=== PATIENT | male | born 1970 | race African-American/Black ===

== ENCOUNTER 2020-08-04 15:35 | Inpatient (IN) | payer MEDICARE, MEDICAID ==
[~2020-08-04] VITALS: Ht 190.5 cm; Wt 84.8 kg
[2020-08-04] MEDS ORDERED: ONDANSETRON HCL 4MG/2ML INJ IV STA (15:52)
[2020-08-04] MEDS ORDERED: VANCOMYCIN 1 G PREMIX 200 ML IV NR (16:00)
[2020-08-04] MEDS ORDERED: SODIUM CHLORIDE 0.9% 1,000 ML IV ONE (16:00)
[2020-08-04] MEDS ORDERED: PIPERACILLIN/TAZ 3.375G PREMIX 50 ML IV NR (16:00)
[2020-08-04 16:35] LABS: HEMATOCRIT. 30.2 % (42.0-52.0); HEMOGLOBIN. 9.9 g/dL (14.0-18.0); MEAN CORPUSCULAR HEMOGLOBIN 24.9 pg (28.0-32.0); MEAN PLATELET VOLUME 7.4 fl (7.4-10.4); PLATELET 517 x1000/uL (130-400); RED BLOOD CELL COUNT 3.98 mill/uL (4.7-6.1); RED CELL DISTRIBUTION WIDTH 17.6 % (11.6-14.6)
[2020-08-04 16:43] LABS: INR 1.4; PARTIAL THROMBOPLASTIN TIME 36.5 sec (23.4-31.0); PROTHROMBIN TIME 14.1 sec (9.6-11.0)
[2020-08-04 17:21] LABS: PLATELET ESTIMATE INCREASED
[2020-08-04 17:29] LABS: CHLORIDE 106 mEq/L (98-107)
[2020-08-04] MEDS ORDERED: KETOROLAC 30MG/ML VIAL IV ONE (17:45)
[2020-08-04] MEDS ORDERED: ACETAMINOPHEN 325MG TABLET PO PRN ×2 (19:30)
[2020-08-04 20:00] VITALS: BP 151/80
[2020-08-04] MEDS ORDERED: MAGNESIUM HYDROXIDE 400MG/5ML 30ML UDC PO PRN (21:30)
[2020-08-04] MEDS: ENOXAPARIN 40MG/0.4ML SYR SUBCUT SCH (21:36)
[2020-08-04 21:45] VITALS: BP 151/80
[2020-08-04] MEDS ORDERED: PIPERACILLIN/TAZ 3.375G PREMIX 50 ML IV SCH (22:00)
[2020-08-04] MEDS: SODIUM CHLORIDE 0.9% INJ 3ML FLUSH IVF SCH (22:44)
[2020-08-04] MEDS: KETOROLAC 30MG/ML VIAL IV PRN (22:45)
[2020-08-04] MEDS: GABAPENTIN 300MG CAPSULE PO SCH (22:52)
[2020-08-05] VITALS: BP 156/88
[2020-08-05] MEDS: PIPERACILLIN/TAZOBACTAM 3.375 G in DEXT 5% WATER 100 ML IV SCH ×4 (01:53→18:28)
[2020-08-05] MEDS ORDERED: HYDR-4009 MT (03:42)
[2020-08-05] MEDS ORDERED: ONDA4TAB50 PO (03:43)
[2020-08-05] MEDS ORDERED: BENA40TA9 MT (03:44)
[2020-08-05] MEDS ORDERED: NITR-87 PO (03:45)
[2020-08-05] MEDS ORDERED: TIZA4TAB5 MT (03:46)
[2020-08-05] MEDS ORDERED: NAPR-1164 MT (03:47)
[2020-08-05] MEDS ORDERED: GABA-531 MT (03:50)
[2020-08-05] MEDS ORDERED: LIDO30CR TP (03:51)
[2020-08-05 04:00] VITALS: BP 160/82
[2020-08-05] MEDS: GABAPENTIN 300MG CAPSULE PO SCH ×3 (05:10→22:00)
[2020-08-05] MEDS: SODIUM CHLORIDE 0.9% INJ 3ML FLUSH IVF SCH ×3 (05:11→22:00)
[2020-08-05 06:35] LABS: BASOPHILS % 0.3 % (0.0-2.0); EOSINOPHILS % 0.3 % (0.0-5.0); HEMATOCRIT. 29.5 % (42.0-52.0); HEMOGLOBIN. 9.6 g/dL (14.0-18.0); LYMPHOCYTES % 11.3 % (20.0-50.0); MEAN CORPUSCULAR HEMOGLOBIN 24.7 pg (28.0-32.0); MEAN CORPUSCULAR VOLUME 75.9 fL (80.0-94.0); MEAN PLATELET VOLUME 6.7 fl (7.4-10.4); NEUTROPHILS % 82.1 % (40.0-76.0); PLATELET 494 x1000/uL (130-400); RED BLOOD CELL COUNT 3.89 mill/uL (4.7-6.1); RED CELL DISTRIBUTION WIDTH 17.8 % (11.6-14.6)
[2020-08-05] MEDS: CLONIDINE 0.1MG TABLET PO PRN (06:41)
[2020-08-05 07:02] LABS: CHLORIDE 103 mEq/L (98-107)
[2020-08-05 08:00] VITALS: BP 117/75
[2020-08-05] MEDS ORDERED: VANCOMYCIN 1 G PREMIX 200 ML IV SCH ×3 (08:00→22:00)
[2020-08-05] MEDS: FAMOTIDINE 20MG TABLET PO SCH ×2 (09:22→21:50)
[2020-08-05] MEDS: POLYETHYLENE GLYCOL 3350 (17GM) 1 DOSE PACK PO SCH (09:22)
[2020-08-05] MEDS: KETOROLAC 30MG/ML VIAL IV PRN ×2 (09:24→18:44)
[2020-08-05] MEDS ORDERED: INFLUENZA VACCINE 05/PF 0.5 ML VIAL IM ONE (10:00)
[2020-08-05 11:53] VITALS: BP 108/67
[2020-08-05 16:00] VITALS: BP 134/88
[2020-08-05] MEDS: ENOXAPARIN 40MG/0.4ML SYR SUBCUT SCH (21:50)
[2020-08-05 21:58] VITALS: BP 128/84
[2020-08-06 00:40] VITALS: BP 138/86
[2020-08-06] MEDS: PIPERACILLIN/TAZOBACTAM 3.375 G in DEXT 5% WATER 100 ML IV SCH ×4 (01:03→18:26)
[2020-08-06] MEDS: KETOROLAC 30MG/ML VIAL IV PRN ×2 (01:04→16:20)
[2020-08-06 04:00] VITALS: BP 100/66
[2020-08-06 06:10] LABS: CHLORIDE 101 mEq/L (98-107)
[2020-08-06] MEDS: GABAPENTIN 300MG CAPSULE PO SCH ×3 (06:16→21:25)
[2020-08-06] MEDS: SODIUM CHLORIDE 0.9% INJ 3ML FLUSH IVF SCH ×2 (06:18→21:25)
[2020-08-06 08:00] VITALS: BP 98/59
[2020-08-06] MEDS: FAMOTIDINE 20MG TABLET PO SCH ×2 (08:46→21:25)
[2020-08-06] MEDS: POLYETHYLENE GLYCOL 3350 (17GM) 1 DOSE PACK PO SCH (08:46)
[2020-08-06] MEDS: HYDROCODONE/APAP 7.5/325MG 1 TAB TABLET PO PRN (09:20)
[2020-08-06 12:13] VITALS: BP 113/80
[2020-08-06 15:55] VITALS: BP 104/65
[2020-08-06 20:00] VITALS: BP 137/81
[2020-08-06] MEDS: ENOXAPARIN 40MG/0.4ML SYR SUBCUT SCH (21:24)
[2020-08-07] VITALS: BP 110/68
[2020-08-07] MEDS: PIPERACILLIN/TAZOBACTAM 3.375 G in DEXT 5% WATER 100 ML IV SCH ×4 (00:06→17:45)
[2020-08-07] MEDS: KETOROLAC 30MG/ML VIAL IV PRN ×2 (00:13→12:38)
[2020-08-07 04:00] VITALS: BP 113/69
[2020-08-07] MEDS: GABAPENTIN 300MG CAPSULE PO SCH ×3 (05:33→22:17)
[2020-08-07] MEDS: SODIUM CHLORIDE 0.9% INJ 3ML FLUSH IVF SCH ×3 (05:34→22:17)
[2020-08-07 06:23] LABS: BASOPHILS % 0.3 % (0.0-2.0); EOSINOPHILS % 1.1 % (0.0-5.0); HEMATOCRIT. 25.3 % (42.0-52.0); HEMOGLOBIN. 8.4 g/dL (14.0-18.0); LYMPHOCYTES % 13.8 % (20.0-50.0); MEAN CORPUSCULAR HEMOGLOBIN 24.6 pg (28.0-32.0); MEAN CORPUSCULAR VOLUME 74.4 fL (80.0-94.0); MEAN PLATELET VOLUME 7.1 fl (7.4-10.4); MONOCYTES % 8.1 % (2.0-8.0); NEUTROPHILS % 76.7 % (40.0-76.0); PLATELET 386 x1000/uL (130-400); RED CELL DISTRIBUTION WIDTH 17.4 % (11.6-14.6)
[2020-08-07 06:45] LABS: CHLORIDE 104 mEq/L (98-107)
[2020-08-07 08:00] VITALS: BP 124/70
[2020-08-07] MEDS: POLYETHYLENE GLYCOL 3350 (17GM) 1 DOSE PACK PO SCH (09:00)
[2020-08-07] MEDS: FAMOTIDINE 20MG TABLET PO SCH ×2 (09:23→22:17)
[2020-08-07 12:00] VITALS: BP 130/81
[2020-08-07] MEDS: VANCOMYCIN 1 G PREMIX 200 ML IV SCH (14:33)
[2020-08-07 16:00] VITALS: BP 143/86
[2020-08-07] MEDS: MORPHINE SULFATE 4 MG/ML CPJ (NOT FOR IM USE) IV PRN (18:26)
[2020-08-07] MEDS ORDERED: MORPHINE SULFATE 4 MG/ML CPJ (NOT FOR IM USE) IV NR (18:30)
[2020-08-07 20:00] VITALS: BP 132/85
[2020-08-07] MEDS: ENOXAPARIN 40MG/0.4ML SYR SUBCUT SCH (22:17)
[2020-08-08] VITALS: BP 128/82
[2020-08-08] MEDS: PIPERACILLIN/TAZOBACTAM 3.375 G in DEXT 5% WATER 100 ML IV SCH ×4 (00:47→20:39)
[2020-08-08] MEDS: MORPHINE SULFATE 4 MG/ML CPJ (NOT FOR IM USE) IV PRN (00:47)
[2020-08-08 04:00] VITALS: BP 125/80
[2020-08-08] MEDS: KETOROLAC 30MG/ML VIAL IV PRN (05:42)
[2020-08-08] MEDS: GABAPENTIN 300MG CAPSULE PO SCH ×3 (05:43→22:28)
[2020-08-08] MEDS: SODIUM CHLORIDE 0.9% INJ 3ML FLUSH IVF SCH ×3 (05:48→22:28)
[2020-08-08 08:00] VITALS: BP 108/67
[2020-08-08] MEDS: POLYETHYLENE GLYCOL 3350 (17GM) 1 DOSE PACK PO SCH (09:00)
[2020-08-08] MEDS: FAMOTIDINE 20MG TABLET PO SCH ×2 (09:05→20:33)
[2020-08-08] MEDS ORDERED: SODIUM BICARBONATE 4% (2.4MEQ) 5ML VIAL IV ONE (12:39)
[2020-08-08] MEDS ORDERED: LIDOCAINE HCL 1% 20ML VIAL (Pyxis) INJ ONE (12:40)
[2020-08-08] MEDS: VANCOMYCIN 1 G PREMIX 200 ML IV SCH (13:55)
[2020-08-08] MEDS: HYDROCODONE/APAP 7.5/325MG 1 TAB TABLET PO PRN ×2 (15:23→22:29)
[2020-08-08 16:00] VITALS: BP 124/74
[2020-08-08 20:00] VITALS: BP 139/86
[2020-08-08] MEDS: ENOXAPARIN 40MG/0.4ML SYR SUBCUT SCH (20:33)
[2020-08-09] VITALS: BP 151/82
[2020-08-09] MEDS: PIPERACILLIN/TAZOBACTAM 3.375 G in DEXT 5% WATER 100 ML IV SCH ×4 (02:14→18:03)
[2020-08-09 04:00] VITALS: BP 140/80
[2020-08-09] MEDS: SODIUM CHLORIDE 0.9% INJ 3ML FLUSH IVF SCH ×3 (05:35→22:53)
[2020-08-09] MEDS: HYDROCODONE/APAP 7.5/325MG 1 TAB TABLET PO PRN ×2 (05:42→12:55)
[2020-08-09] MEDS: GABAPENTIN 300MG CAPSULE PO SCH ×3 (06:00→22:00)
[2020-08-09 07:02] LABS: CHLORIDE 107 mEq/L (98-107)
[2020-08-09 07:07] LABS: BASOPHILS % 0.3 % (0.0-2.0); EOSINOPHILS % 2.1 % (0.0-5.0); HEMATOCRIT. 23.2 % (42.0-52.0); HEMOGLOBIN. 7.5 g/dL (14.0-18.0); MEAN CORPUSCULAR HEMOGLOBIN 24.5 pg (28.0-32.0); MEAN CORPUSCULAR VOLUME 75.6 fL (80.0-94.0); MEAN PLATELET VOLUME 7.1 fl (7.4-10.4); MONOCYTES % 8.8 % (2.0-8.0); NEUTROPHILS % 75.8 % (40.0-76.0); PLATELET 365 x1000/uL (130-400); RED BLOOD CELL COUNT 3.06 mill/uL (4.7-6.1); RED CELL DISTRIBUTION WIDTH 17.5 % (11.6-14.6)
[2020-08-09 08:00] VITALS: BP 135/93
[2020-08-09] MEDS: POLYETHYLENE GLYCOL 3350 (17GM) 1 DOSE PACK PO SCH (09:00)
[2020-08-09] MEDS: ONDANSETRON HCL 4MG/2ML INJ IV PRN ×2 (09:46→20:35)
[2020-08-09] MEDS: FAMOTIDINE 20MG TABLET PO SCH ×2 (09:46→20:30)
[2020-08-09 12:00] VITALS: BP 121/71
[2020-08-09] MEDS: VANCOMYCIN 1 G PREMIX 200 ML IV SCH (12:47)
[2020-08-09 16:00] VITALS: BP_SYST 118; BP_SYST 119; BP_DIAS 78; BP_DIAS 82
[2020-08-09] MEDS: KETOROLAC 30MG/ML VIAL IV PRN (18:18)
[2020-08-09 20:00] VITALS: BP 117/70
[2020-08-09] MEDS: ENOXAPARIN 40MG/0.4ML SYR SUBCUT SCH (20:30)
[2020-08-10] VITALS (71 sets, daily range): BP systolic 102–146; BP diastolic 42–101
[2020-08-10] MEDS ORDERED: KETOROLAC 30MG/ML VIAL IV PRN (00:15)
[2020-08-10] MEDS: PIPERACILLIN/TAZOBACTAM 3.375 G in DEXT 5% WATER 100 ML IV SCH ×3 (00:21→15:31)
[2020-08-10] MEDS: ONDANSETRON HCL 4MG/2ML INJ IV PRN (00:21)
[2020-08-10] MEDS: VANCOMYCIN 1 G PREMIX 200 ML IV SCH (05:54)
[2020-08-10] MEDS: SODIUM CHLORIDE 0.9% INJ 3ML FLUSH IVF SCH ×3 (05:55→21:20)
[2020-08-10] MEDS: GABAPENTIN 300MG CAPSULE PO SCH ×3 (05:55→21:21)
[2020-08-10] MEDS: POLYETHYLENE GLYCOL 3350 (17GM) 1 DOSE PACK PO SCH (09:00)
[2020-08-10] MEDS: PANTOPRAZOLE SODIUM 40 MG/VIAL IV SCH (09:03)
[2020-08-10] MEDS: SODIUM CHLORIDE 0.9% 1,000 ML IV SCH ×2 (09:05→15:45)
[2020-08-10 09:59] LABS: MEAN CORPUSCULAR HEMOGLOBIN 24.5 pg (28.0-32.0); PLATELET 356 x1000/uL (130-400); RED BLOOD CELL COUNT 1.91 mill/uL (4.7-6.1); RED CELL DISTRIBUTION WIDTH 17.8 % (11.6-14.6)
[2020-08-10 10:13] LABS: HEMATOCRIT 14.5 % (42.0-52.0); HEMOGLOBIN 4.7 g/dL (14.0-18.0)
[2020-08-10] MEDS ORDERED: SODIUM CHLORIDE 0.9% 500 ML IV ONE (10:15)
[2020-08-10] MEDS: MORPHINE SULFATE 2 MG/ML CPJ (NOT FOR IM USE) IV PRN ×2 (13:38→20:03)
[2020-08-10] MEDS ORDERED: MIDAZOLAM HCL 5 MG/5 ML VIAL IV PRN (14:21)
[2020-08-10] MEDS ORDERED: MIDAZOLAM HCL 5 MG/5 ML VIAL ONE (14:21)
[2020-08-10] MEDS ORDERED: FENTANYL CITRATE/PF 50MCG/ML 2ML VIAL ONE (14:22)
[2020-08-10] MEDS ORDERED: FENTANYL CITRATE/PF 50MCG/ML 2ML VIAL IV PRN (14:22)
[2020-08-10] MEDS: SUCRALFATE 1 G/10 ML UDC PO SCH ×2 (17:39→21:21)
[2020-08-10] MEDS: METRONIDAZOLE 500MG TABLET PO SCH (17:39)
[2020-08-10] MEDS: LEVOFLOXACIN 750MG PREMIX 150 ML IV SCH (17:40)
[2020-08-10 20:42] LABS: BASOPHILS % 0.3 % (0.0-2.0); HEMATOCRIT. 23.1 % (42.0-52.0); HEMOGLOBIN. 7.6 g/dL (14.0-18.0); LYMPHOCYTES % 9.7 % (20.0-50.0); MEAN CORPUSCULAR HEMOGLOBIN 27.4 pg (28.0-32.0); MEAN CORPUSCULAR VOLUME 83.1 fL (80.0-94.0); MEAN PLATELET VOLUME 7.5 fl (7.4-10.4); MONOCYTES % 5.8 % (2.0-8.0); NEUTROPHILS % 84.2 % (40.0-76.0); PLATELET 291 x1000/uL (130-400); RED BLOOD CELL COUNT 2.78 mill/uL (4.7-6.1); RED CELL DISTRIBUTION WIDTH 18.7 % (11.6-14.6)
[2020-08-10] MEDS: DIPHENHYDRAMINE 50MG/ML VIAL IV PRN (21:27)
[2020-08-11] VITALS (66 sets, daily range): BP systolic 105–148; BP diastolic 40–98
[2020-08-11] MEDS: SODIUM CHLORIDE 0.9% 1,000 ML IV SCH ×4 (00:02→23:15)
[2020-08-11] MEDS: MORPHINE SULFATE 2 MG/ML CPJ (NOT FOR IM USE) IV PRN ×4 (00:46→17:58)
[2020-08-11 01:02] LABS: HEMATOCRIT 20.4 % (42.0-52.0); HEMOGLOBIN 6.9 g/dL (14.0-18.0)
[2020-08-11] MEDS: SUCRALFATE 1 G/10 ML UDC PO SCH ×4 (05:39→20:38)
[2020-08-11] MEDS: GABAPENTIN 300MG CAPSULE PO SCH ×3 (05:39→22:26)
[2020-08-11] MEDS: SODIUM CHLORIDE 0.9% INJ 3ML FLUSH IVF SCH ×3 (05:40→22:29)
[2020-08-11 05:56] LABS: HEMATOCRIT 23.6 % (42.0-52.0)
[2020-08-11] MEDS: POLYETHYLENE GLYCOL 3350 (17GM) 1 DOSE PACK PO SCH (08:56)
[2020-08-11] MEDS: METRONIDAZOLE 500MG TABLET PO SCH ×2 (09:01→17:34)
[2020-08-11] MEDS: PANTOPRAZOLE SODIUM 40 MG/VIAL IV SCH (09:02)
[2020-08-11] MEDS: LEVOFLOXACIN 750MG PREMIX 150 ML IV SCH (17:34)
[2020-08-11 18:28] LABS: HEMATOCRIT 24.9 % (42.0-52.0); HEMOGLOBIN 8.6 g/dL (14.0-18.0)
[2020-08-11 18:49] LABS: TOTAL IRON BINDING CAPACITY 190 ug/dL (250-450)
[2020-08-11] MEDS: OXYCODONE HCL/ACETAMINOPHEN 5/325MG TABLET PO PRN (22:27)
[2020-08-11] MEDS: DIPHENHYDRAMINE 50MG/ML VIAL IV PRN (22:27)
[2020-08-12] VITALS (65 sets, daily range): BP systolic 109–172; BP diastolic 55–120
[2020-08-12 00:20] LABS: HEMATOCRIT 22.4 % (42.0-52.0); HEMOGLOBIN 7.6 g/dL (14.0-18.0)
[2020-08-12] MEDS: OXYCODONE HCL/ACETAMINOPHEN 5/325MG TABLET PO PRN ×3 (05:48→18:44)
[2020-08-12] MEDS: SUCRALFATE 1 G/10 ML UDC PO SCH ×4 (05:48→22:36)
[2020-08-12] MEDS: GABAPENTIN 300MG CAPSULE PO SCH ×3 (05:48→22:38)
[2020-08-12] MEDS: SODIUM CHLORIDE 0.9% INJ 3ML FLUSH IVF SCH ×3 (06:00→22:36)
[2020-08-12] MEDS: SODIUM CHLORIDE 0.9% 1,000 ML IV SCH ×3 (06:45→23:54)
[2020-08-12 07:54] LABS: HEMATOCRIT 22.7 % (42.0-52.0); HEMOGLOBIN 7.6 g/dL (14.0-18.0)
[2020-08-12] MEDS: POLYETHYLENE GLYCOL 3350 (17GM) 1 DOSE PACK PO SCH (13:24)
[2020-08-12] MEDS: LEVOFLOXACIN 750MG PREMIX 150 ML IV SCH (13:26)
[2020-08-12] MEDS: PANTOPRAZOLE SODIUM 40 MG/VIAL IV SCH (13:31)
[2020-08-12] MEDS: METRONIDAZOLE 500MG TABLET PO SCH ×2 (13:33→17:00)
[2020-08-12] MEDS: DIPHENHYDRAMINE 50MG/ML VIAL IV PRN ×2 (13:52→23:54)
[2020-08-13] VITALS (7 sets, daily range): BP systolic 104–174; BP diastolic 76–91
[2020-08-13 06:08] LABS: CHLORIDE 111 mEq/L (98-107)
[2020-08-13] MEDS: GABAPENTIN 300MG CAPSULE PO SCH ×3 (06:16→21:58)
[2020-08-13] MEDS: OXYCODONE HCL/ACETAMINOPHEN 5/325MG TABLET PO PRN ×3 (06:17→21:58)
[2020-08-13] MEDS: SUCRALFATE 1 G/10 ML UDC PO SCH ×5 (06:18→21:06)
[2020-08-13] MEDS: SODIUM CHLORIDE 0.9% INJ 3ML FLUSH IVF SCH ×3 (06:18→21:17)
[2020-08-13 07:31] LABS: BASOPHILS % 0.2 % (0.0-2.0); EOSINOPHILS % 4.7 % (0.0-5.0); HEMATOCRIT. 28.1 % (42.0-52.0); HEMOGLOBIN. 9.4 g/dL (14.0-18.0); MEAN CORPUSCULAR HEMOGLOBIN 27.4 pg (28.0-32.0); MEAN CORPUSCULAR VOLUME 82.3 fL (80.0-94.0); MONOCYTES % 7.6 % (2.0-8.0); NEUTROPHILS % 74.5 % (40.0-76.0); PLATELET 353 x1000/uL (130-400); RED BLOOD CELL COUNT 3.42 mill/uL (4.7-6.1)
[2020-08-13] MEDS: SODIUM CHLORIDE 0.9% 1,000 ML IV SCH ×2 (08:30→15:47)
[2020-08-13] MEDS: POLYETHYLENE GLYCOL 3350 (17GM) 1 DOSE PACK PO SCH (08:31)
[2020-08-13] MEDS: METRONIDAZOLE 500MG TABLET PO SCH ×2 (08:37→17:59)
[2020-08-13] MEDS: PANTOPRAZOLE SODIUM 40 MG/VIAL IV SCH (08:38)
[2020-08-13] MEDS: LEVOFLOXACIN 750MG PREMIX 150 ML IV SCH (18:16)
[2020-08-13] MEDS: CLONIDINE 0.1MG TABLET PO PRN (21:06)
[2020-08-13] MEDS: DIPHENHYDRAMINE 50MG/ML VIAL IV PRN (21:17)
[2020-08-14] VITALS (7 sets, daily range): BP systolic 121–146; BP diastolic 75–92
[2020-08-14] MEDS: SODIUM CHLORIDE 0.9% 1,000 ML IV SCH ×3 (00:19→15:45)
[2020-08-14] MEDS: DIPHENHYDRAMINE 50MG/ML VIAL IV PRN (04:06)
[2020-08-14] MEDS: GABAPENTIN 300MG CAPSULE PO SCH ×2 (06:38→13:15)
[2020-08-14] MEDS: SUCRALFATE 1 G/10 ML UDC PO SCH ×3 (06:38→17:26)
[2020-08-14] MEDS: OXYCODONE HCL/ACETAMINOPHEN 5/325MG TABLET PO PRN ×2 (06:39→13:15)
[2020-08-14] MEDS: SODIUM CHLORIDE 0.9% INJ 3ML FLUSH IVF SCH ×2 (06:42→14:00)
[2020-08-14] MEDS: METRONIDAZOLE 500MG TABLET PO SCH ×2 (08:44→17:22)
[2020-08-14] MEDS: PANTOPRAZOLE SODIUM 40 MG/VIAL IV SCH (08:45)
[2020-08-14] MEDS: POLYETHYLENE GLYCOL 3350 (17GM) 1 DOSE PACK PO SCH (08:46)
[2020-08-15] MEDS ORDERED: LEVOFLOXACIN 250MG TABLET PO SCH (11:00)
== END 2020-08-14 20:15 | disposition home or self-care (01) | DRG 853 ==
LOC: ER 15:35 → 6EST 17:42 → ENRESERV 19:43 → MICUNO 08-10 10:21 → 5WST 08-12 21:43 → 6EST 08-13 12:18
PROVIDERS: ADMIT Internal Medicine; ATTEND Internal Medicine
PROC: 02HV33Z Insertion of Infusion Device into Superior Vena Cava, Percutaneous Approach (ICD-10-PCS; 2020-08-08)
PROC: B518ZZA Fluoroscopy of Superior Vena Cava, Guidance (ICD-10-PCS; 2020-08-08)
PROC: B548ZZA Ultrasonography of Superior Vena Cava, Guidance (ICD-10-PCS; 2020-08-08)
PROC: 0DB68ZX Excision of Stomach, Via Natural or Artificial Opening Endoscopic, Diagnostic (ICD-10-PCS; 2020-08-10)
PROC: 0W3P8ZZ Control Bleeding in Gastrointestinal Tract, Via Natural or Artificial Opening Endoscopic (ICD-10-PCS; 2020-08-10)
PROC: 30233R1 Transfusion of Nonautologous Platelets into Peripheral Vein, Percutaneous Approach (ICD-10-PCS; 2020-08-10)
PROC: 0JB70ZZ Excision of Back Subcutaneous Tissue and Fascia, Open Approach (ICD-10-PCS; principal; 2020-08-14)
DX: A41.9 Sepsis, unspecified organism (principal); L89.153 Pressure ulcer of sacral region, stage 3; R57.1 Hypovolemic shock; K25.4 Chronic or unspecified gastric ulcer with hemorrhage; L03.116 Cellulitis of left lower limb; I96 Gangrene, not elsewhere classified; G82.20 Paraplegia, unspecified; E46 Unspecified protein-calorie malnutrition; M86.172 Other acute osteomyelitis, left ankle and foot; D68.9 Coagulation defect, unspecified; I82.403 Acute embolism and thrombosis of unspecified deep veins of lower extremity, bilateral; L97.419 Non-pressure chronic ulcer of right heel and midfoot with unspecified severity; M86.672 Other chronic osteomyelitis, left ankle and foot; L97.429 Non-pressure chronic ulcer of left heel and midfoot with unspecified severity; L97.529 Non-pressure chronic ulcer of other part of left foot with unspecified severity; D63.8 Anemia in other chronic diseases classified elsewhere; L89.610 Pressure ulcer of right heel, unstageable; I10 Essential (primary) hypertension; D47.3 Essential (hemorrhagic) thrombocythemia; E88.09 Other disorders of plasma-protein metabolism, not elsewhere classified; Z20.828 Contact with and (suspected) exposure to other viral communicable diseases; L89.150 Pressure ulcer of sacral region, unstageable; Z68.23 Body mass index [BMI] 23.0-23.9, adult; Z95.828 Presence of other vascular implants and grafts; Z90.5 Acquired absence of kidney; Z89.612 Acquired absence of left leg above knee; Z79.899 Other long term (current) drug therapy; Z99.3 Dependence on wheelchair; S24.104S Unspecified injury at T11-T12 level of thoracic spinal cord, sequela; R55 Syncope and collapse; R10.9 Unspecified abdominal pain
CPT/HCPCS: 36415; 36573; 71045; 73620; 74176; 80048; 80053; 80202; 82040; 82728; 82962; 83540; 83550; 83880; 84134; 84484; 85014; 85018; 85025; 85027; 85651; 86140; 86850; 86900; 86920; 87070; 87077; 87186; 87426; 88304; 88305; 88311; 88313; 90686; 93005; 93970; 97022; 97162; 99285; C1725; C9113; J1200; J1650; J1885; J1956; J2250; J2270; J2405; J2543; J3010; J3370; J3490; J7030; J7040; J7060; P9016; A4315